=== PATIENT | female | born 1985 | race Caucasian/White ===

== ENCOUNTER → 2020-09-03 13:57 | Outpatient (CLI) | payer MEDICAID, SELFPAY ==
[2015-09-12 14:30] VITALS: BMI 36.2
[2020-09-03 15:43] LABS: AST(SGOT) 9 U/L (15-37); Alanine Aminotransfer ALT/SGPT 17 U/L (13-56); Albumin, Serum 3.8 g/dL (3.2-5.0); Alkaline Phosphatase 74 U/L (45-117); Globulin 3.9 g/dL (2.2-4.2); Protein, Total 7.7 g/dL (6.4-8.2)
[2020-09-04 09:05] LABS: Hepatitis B Surface Antigen Non-Reactive (Nonreactive); Hepatitis C Antibody Non-Reactive (Nonreactive)
== END ==
PROVIDERS: PCP Family Medicine
DX: R63.0 Anorexia (principal); R53.81 Other malaise; R11.0 Nausea
CPT/HCPCS: 36415; 80076; 86803; 87340